=== PATIENT | male | born 1940 | race Caucasian/White ===

== ENCOUNTER 2016-08-09 13:23 | Outpatient (RCR) | payer OTHER, MEDICARE ==
[2016-08-09 14:01] LABS: BASOPHILS % (AUTO) 0 % (0-10); EOSINOPHILS # (AUTO) 0.3 10^3/uL (0.0-0.3); EOSINOPHILS % (AUTO) 5 % (0-10); LYMPHOCYTES # (AUTO) 1.5 X 10^3 (1.0-4.0); LYMPHOCYTES % (AUTO) 22 % (12-44); MEAN CORPUSCULAR HEMOGLOBIN 30 PG (25-34); MEAN CORPUSCULAR HGB CONC 34 G/DL (32-36); MEAN CORPUSCULAR VOLUME 90 FL (80-99); MEAN PLATELET VOLUME 10.3 FL (7.4-10.4); MONOCYTES # (AUTO) 0.5 X 10^3 (0.0-1.0); MONOCYTES % (AUTO) 7 % (0-12); NEUTROPHILS # (AUTO) 4.6 X 10^3 (1.8-7.8); NEUTROPHILS % (AUTO) 66 % (42-75); PLATELET COUNT 196 10^3/uL (130-400); RED BLOOD COUNT 4.58 10^6/uL (4.35-5.85); RED CELL DISTRIBUTION WIDTH 13.3 % (10.0-14.5)
[2016-08-09 14:43] LABS: ALANINE AMINOTRANSFERASE 31 U/L (0-55); ALBUMIN 4.1 G/DL (3.2-4.5); ANION GAP 9 MMOL/L (5-14); ASPARTATE AMINO TRANSFERASE 28 U/L (5-34); BILIRUBIN,TOTAL 0.4 MG/DL (0.1-1.0); BLOOD UREA NITROGEN 22 MG/DL (7-18); BUN/CREATININE RATIO 20; CALCIUM 9.1 MG/DL (8.5-10.1); CARBON DIOXIDE 21 MMOL/L (21-32); CHLORIDE 114 MMOL/L (98-107); CREATININE SERUM 1.09 MG/DL (0.60-1.30); GFR ESTIMATED > 60; GLUCOSE 95 MG/DL (70-105); POTASSIUM 4.6 MMOL/L (3.6-5.0); SODIUM 144 MMOL/L (135-145); TOTAL PROTEIN 6.9 G/DL (6.4-8.2)
== END 2016-11-07 | disposition home or self-care (01) ==
LOC: ONC 13:23
PROVIDERS: ATTEND Internal Medicine Hematology & Oncology
DX: Z86.2 Personal history of diseases of the blood and blood-forming organs and certain disorders involving the immune mechanism (principal); M48.06 Spinal stenosis, lumbar region; I82.531 Chronic embolism and thrombosis of right popliteal vein; C61 Malignant neoplasm of prostate; Z79.891 Long term (current) use of opiate analgesic
CPT/HCPCS: 36415; 80053; 84153; 85025; 99214

== ENCOUNTER → 2016-08-09 | Outpatient (CLI) | payer MEDICARE, OTHER ==
[~2016-08-09] MED LIST: ACHYD1T PO; ASPI-892; FNST5T PO; HC2.5C30 TP; HYOS0.1216 PO; LORA10TA2 PO; LRT10T; MECL-124; MECL-124 PO; MIRT30TA19; MORP15TA30; MULT-963 PO; OMEP20CA6 PO; PHEN200T27 PO; SERT100T8 PO; SMV20T PO; SULF1TAB38 PO; TAMS0.4C2 PO; TR1O15 TOP; TRM50T PO; WRF5T PO; [UNRECOGNIZED DRUG - CODE] PO
--- NOTE | 2016-08-09 15:50 | Diagnostic Imaging Report ---
Left lower extremity arterial vascular ultrasound. INDICATION: Claudication, pain. FINDINGS: There is mild multifocal plaque seen in the grayscale images in the femoropopliteal segments. Color Doppler demonstrates patency of the vessels from the common femoral to the posterior tibial and dorsalis pedis arteries bilaterally. There are triphasic waveforms seen throughout. The peak systolic velocities are in the range of 66 to 129 cm/sec from the proximal to distal with no evidence of significant underlying stenosis. IMPRESSION: Mild atherosclerotic plaque with no ultrasound evidence of significant arterial stenosis. Dictated by: Dictated on workstation # [id number]
== END ==
LOC: RAD 12:12
PROVIDERS: ATTEND Family Medicine
DX: I73.9 Peripheral vascular disease, unspecified (principal); L97.929 Non-pressure chronic ulcer of unspecified part of left lower leg with unspecified severity; M79.604 Pain in right leg; R22.42 Localized swelling, mass and lump, left lower limb
CPT/HCPCS: 93926

== ENCOUNTER 2016-08-28 14:28 | Outpatient (RCR) | payer MEDICARE, OTHER | END 2016-08-28 16:00 | disposition home or self-care (01) | LOC: WOUNDCARE 14:28 | PROVIDERS: ATTEND Surgery | DX: L97.221 Non-pressure chronic ulcer of left calf limited to breakdown of skin (principal); I87.332 Chronic venous hypertension (idiopathic) with ulcer and inflammation of left lower extremity; I70.242 Atherosclerosis of native arteries of left leg with ulceration of calf; I89.0 Lymphedema, not elsewhere classified | CPT/HCPCS: 99213; 99214 ==

== ENCOUNTER → 2017-11-15 | Outpatient (CLI) | payer MEDICARE ==
--- NOTE | 2017-11-15 18:08 | Diagnostic Imaging Report ---
PROCEDURE: US Bilateral lower extremity arterial. TECHNIQUE: Multiple real-time grayscale images are obtained through both lower extremity arterial systems with color Doppler imaging and color Doppler spectral analysis. INDICATION: Bilateral lower extremity claudication. FINDINGS: There is a triphasic and biphasic flow pattern throughout the arteries of both lower extremities. Mild atherosclerotic disease is seen with no occlusions or significant stenoses identified on either side. There is flow in the dorsalis pedis and posterior tibial arteries bilaterally. IMPRESSION: Mild disease. No significant abnormality is seen. Dictated by: Dictated on workstation # [id number]
== END ==
LOC: RAD 17:02
PROVIDERS: ATTEND Family Medicine
DX: I73.9 Peripheral vascular disease, unspecified (principal)
CPT/HCPCS: 93925

== ENCOUNTER 2017-11-30 11:25 | Day surgery (SDC) | payer MEDICARE, OTHER ==
[~2017-11-30] VITALS: Ht 190.5 cm; Wt 108.9 kg
[~2017-11-30 11:25] MED LIST changes: +ALFU10TA11 PO; +FINA5TAB6 PO; +FLUT15.88 NS; +FURO-124 PO; +LORA10TA7 PO; +MECL-106 PO; +NAPR-1070 PO; +NFIPRATRNS NS; +OMEP20TA7 PO; +PANT40TA2 PO; +RIVA20TA PO; +SERT50TA9 PO; +SIMV40TA4 PO; +TRAM50TA2 PO
[2017-11-30] MEDS ORDERED: NS IV 500 ML 500 ML ONE (11:37)
[2017-11-30] MEDS ORDERED: NS IV 500 ML 500 ML IV PRN (11:41)
[2017-11-30] MEDS ORDERED: NALOXONE 0.4 MG/ML 1 ML (NARCAN) VIAL IVP PRN (11:45)
[2017-11-30] MEDS ORDERED: LIDOCAINE JELLY 2% (XYLOCAINE) 5 ML TUBE MM PRN (11:45)
[2017-11-30] MEDS ORDERED: HURRICAINE EXT TUBE (BENZOCAINE) XX PRN (11:45)
[2017-11-30] MEDS ORDERED: FLUMAZENIL (ROMAZICON) 0.1 MG/ML 5 ML VIAL INJ PRN (11:45)
--- NOTE | 2017-11-30 11:46 | Conscious Sedation/ASA ---
Conscious Sedation Pre-Proced Time Reviewed: 11:45 ASA Class: 3 Airway Mallampati Classification: (agdaagux appropriate class) I. II. III, IV Lungs Heart ASA score ASA 1: a normal healthy patient ASA 2: a patient with a mild systemic disease (mid diabetes, controlled hypertension, obesity ASA 3: a patient with a severe systemic disease that limits activity (angina , COPD, prior Myocardial infarction) ASA 4: a patient with an incapacitating disease that is a constant threat to life (CHF, renal failure) ASA 5: a moribund patient not expected to survive 24 hrs. (ruptured aneurysm) ASA 6: a declared brain patient whose organs are being harvested. For emergent operations, add the letter E after the classification Grade 2 Sedation Plan: Analgesia, Amnesia, Plan communicated to team members, Discussed options with patient/fam, Discussed risks with patient/fam Note The patient is an appropriate candidate to undergo the planned procedure, sedation, and anesthesia. The patient immediately re-assessed prior to indication. YAMILETH NIEVES MD Nov 30, 2017 11:46 am
--- NOTE | 2017-11-30 11:46 | Progress Note-Pre Operative ---
Pre-Operative Progress Note H&P Reviewed The H&P was reviewed, patient examined and no changes noted. Date Seen by Provider: Nov 30, 2017 Time Seen by Provider: 11:45 Date H&P Reviewed: Nov 30, 2017 Time H&P Reviewed: 11:45 Pre-Operative Diagnosis: dysphagia, rectal bleed YAMILETH NEIVES MD Nov 30, 2017 11:46 am
[2017-11-30] MEDS ORDERED: ONDANSETRON 4 MG/2 ML (SDV) Z0FRAN IV PRN (12:00)
[2017-11-30] MEDS ORDERED: HYDROcodone/APAP 5 MG/325 MG (LORTAB) TAB PO PRN (12:00)
[2017-11-30] MEDS ORDERED: ACETAMINOPHEN 325 MG TABLET/CAPLET (TYLENOL) PO PRN (12:00)
[2017-11-30] MEDS ORDERED: morphine INJ 10 MG/ML 1ML (SYR OR VIAL) IV PRN (12:00)
[2017-11-30 12:08] VITALS: BP 120/83
[2017-11-30] MEDS ORDERED: LIDOCAINE JELLY 2% (XYLOCAINE) 5 ML TUBE ONE (12:49)
[2017-11-30] MEDS ORDERED: fentaNYL INJECTION 100 MCG/2 ML AMP ONE (12:49)
[2017-11-30] MEDS ORDERED: MIDAZOLAM 2 MG/2 ML (VERSED) VIAL ONE ×5 (12:49→13:37)
[2017-11-30] MEDS ORDERED: HURRICAINE EXT TUBE (BENZOCAINE) ONE (12:50)
[2017-11-30] MEDS: MIDAZOLAM 2 MG/2 ML (VERSED) VIAL IVP PRN ×5 (13:06→13:41)
[2017-11-30] MEDS: fentaNYL INJECTION 100 MCG/2 ML AMP IVP PRN ×2 (13:07→13:29)
[2017-11-30 13:50] VITALS: BP 120/83
--- NOTE | 2017-11-30 14:04 | Progress Note-Post Operative ---
Post-Operative Progess Note Surgeon (s)/Tennis Professional (s) Surgeon YAMILETH NIEVES MD Tennis Professional: none Pre-Operative Diagnosis dysphagia, rectal bleed Post-Operative Diagnosis reflux esophagitis(class B-C), mild schatzki ring, moderate HH(3cm), mild-moderate gastritis. chronic stage 2-3 ext and int hemorrhoids. Procedure & Operative Findings Date of Procedure 11/30/17 Procedure Performed/Findings EGD with bx and balloon and dilatation. Colonoscopy. Anesthesia Type CS Estimated Blood Loss Estimated blood loss (mL): minimal Specimens/Packing Specimens Removed GE jxn, antrum YAMILETH NIEVES MD Nov 30, 2017 2:03 pm
--- NOTE | 2017-11-30 14:05 | Discharge Inst-Surgical ---
D/C Lap Instructions-LIZBETH Follow Up Appt in 2 weeks Activity as tolerated High Fiber Diet 25g or more per day Avoid Alcohol, Caffeine, Spicy [place] and Acid foods. Drink 64 fluid oz or more of fluids per day. Symptoms to Report: Fever over 101 degree F, Nausea/Vomiting If any problems/questions: Contact your physician or go to Emergency Room YAMILETH NIEVES MD Nov 30, 2017 2:05 pm
[2017-11-30 14:15] VITALS: BP 114/74
[2017-11-30 14:45] VITALS: BP 115/70
--- NOTE | 2017-11-30 21:29 | OPERATIVE REPORT ---
DATE OF SERVICE: 11/30/2017 ATTENDING PRIMARY CARE PHYSICIAN: Dr. Lexi Maldonado. PREOPERATIVE DIAGNOSES: Dysphagia, maroon-colored stools. POSTOPERATIVE DIAGNOSES: Reflux esophagitis between class B and C, mild distal esophageal stricture, moderate size hiatal hernia approximately 3 cm in size, mild to moderate gastritis. No distal obstructions. Chronic between stage II and III external and internal hemorrhoids. Remainder of the rectum and colon were normal. PROCEDURE: EGD with biopsy and balloon dilatation. Colonoscopy. SURGEON: Dr. Nieves. ANESTHESIA: Conscious sedation. ESTIMATED BLOOD LOSS: Minimal. FINDINGS: EGD, reflux esophagitis between class B and C with a mild distal esophageal stricture, moderate size hiatal hernia approximately 3 cm in size, mild to moderate gastritis with no ulcers, polyps or any neoplasms identified as well as no active bleeding sources. Pylorus and duodenum appeared normal with no distal obstructions. Colonoscopy chronic between stage II and III external and internal hemorrhoids with mild irritation in edema. The most likely etiology of his bleeding being internal hemorrhoids. The remainder of the rectum and colon were normal. There were no polyps or any neoplasms identified. DISPOSITION: The patient tolerated the procedure well. The patient is a 77-year-old male who was referred over to us for maroon colored stools greater than past 2 weeks. He states that this is mixed with the stools as well as on the toilet tissue. 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 He also does have dysphagia and states that while eating food as well as medications, he will feel an epigastric fullness sensation as well as pressure. He also does report that he has had colon polyps in the past. The patient was brought to the endoscopy suite, laid in left lateral decubitus position with head slightly elevated. After adequate IV pain and sedating medications and conscious sedation anesthesia, the mouthpiece was applied. The endoscope was then placed in the mouth visualizing the pharynx and hypopharyngeal region. Vocal cords, epiglottis and vallecula identified and appeared to be normal. The endoscope was then gently intubated at the esophageal opening, esophagus insufflated. The endoscope was then advanced to the first, second and third portion of the esophagus to the level of the GE junction. A reflux esophagitis between class B and C identified. There was also a mild distal esophageal stricture and a Schatzki's ring. A biopsy was taken with forceps with visualization of good hemostasis. The endoscope was then easily advanced in the stomach and endoscope retroflexed, visualizing a moderate size hiatal hernia approximately 3 cm in size. This most likely is the etiology of his Schatzki's ring and dysphagia. There was a mild to moderate gastritis, no formal ulcers, polyps or any neoplasms identified as well as no bleeding sources. A biopsy was taken of the antrum for H. pylori with visualization of good hemostasis. The endoscope was then advanced to the pylorus into the first and second portion of the duodenum, which appeared normal with no distal obstructions. We then proceeded with the dilatation of the Schatzki's ring. A large CRE fixed guidewire balloon was placed in the stomach and pulled back to the level of the distal esophagus. The balloon was then insufflated to 3 atmospheres of pressure, 18 mm in diameter with no resistance. We then proceeded to 4.5 atmospheres of pressure or 19 mm with no resistance. We then proceeded to 20 mm or 6 atmospheres of pressure with very mild resistance and left this in place for 60 seconds. The balloon was desufflated and removed. There were no mucosal tears identified as well as no bleeding. The endoscope was then slowly withdrawn while taking a second look and suctioning residual air with no additional findings. The patient tolerated the procedure well. We will recommend diet and lifestyle accommodation including small and more frequent meals, avoidance of eating at night as well as head elevation while lying supine. He also needs to avoid caffeinated beverages, spicy, greasy and acidic foods. He may also restart his Protonix. Under the same conscious sedation anesthesia, we then proceeded with the colonoscopy portion of the procedure. A digital rectal examination was performed which revealed chronic between stage II and III external and internal hemorrhoids with some irritation of the internal hemorrhoidal cushions. We feel this is most likely due to the preparation, however, because of the size of the hemorrhoids as the most likely etiology of his bleeding along with taking anticoagulation. Normal sphincter tone was felt and there were no palpable masses. Prostate gland was palpable and appeared normal. The endoscope was then intubated to the anus and rectum gently insufflated. The endoscope was then advanced to the valves of [place] of the rectum with no polyps or any neoplasms identified. We then proceeded to the sigmoid colon where no diverticulosis identified. The endoscope was then advanced to the remainder of the descending, transverse and ascending colon to the cecum. These segments were normal. There were no polyps or any neoplasms identified as well as no active bleeding source is identified. The endoscope was then slowly withdrawn while taking a second look and suctioning of residual air with no additional findings. The patient tolerated the procedure well. We will recommend the necessary lifestyle and diet accommodation including a high fiber diet with at least 30 grams of fiber per day as well as at least 64 fluid ounces of water to promote soft stools on a daily basis. He does have between stage II and III external and internal hemorrhoids and the most likely etiology of his bleeding and if he continues to have problems with this, we will recommend that he proceed with a formal hemorrhoidectomy to stop the bleeding and allow for continued medical management with anticoagulation. Job ID: [id number] DocumentID: [id number] Dictated Date: 11/30/2017 14:04:11 Bottom Stainer Date: 11/30/2017 21:29:04 Dictated By: YAMILETH NIEVES MD
== END 2017-11-30 14:50 | disposition home or self-care (01) ==
LOC: ENDO 11:25
PROVIDERS: ATTEND Surgery
DX: K92.1 Melena (principal); K64.1 Second degree hemorrhoids; K21.0 Gastro-esophageal reflux disease with esophagitis; K22.2 Esophageal obstruction; K44.9 Diaphragmatic hernia without obstruction or gangrene; K29.70 Gastritis, unspecified, without bleeding; J44.9 Chronic obstructive pulmonary disease, unspecified; E78.00 Pure hypercholesterolemia, unspecified; N40.0 Benign prostatic hyperplasia without lower urinary tract symptoms; R60.0 Localized edema; Z86.718 Personal history of other venous thrombosis and embolism; Z79.01 Long term (current) use of anticoagulants; Z79.899 Other long term (current) drug therapy; Z87.891 Personal history of nicotine dependence
CPT/HCPCS: 88305

== ENCOUNTER → 2020-02-05 | Outpatient (CLI) | payer MEDICARE ==
[~2020-02-05] MED LIST changes: -ALFU10TA11 PO; +ALFU10TA12 PO; +FLUT15.845 NS; -FLUT15.88 NS; -MECL-106 PO; +MECL-149 PO; -RIVA20TA PO; +RIVA20TA2 PO; +SIMV40TA25 PO; -SIMV40TA4 PO; -TRAM50TA2 PO
== END ==
LOC: WOUNDCARE 12:37
PROVIDERS: ATTEND Surgery
DX: I87.332 Chronic venous hypertension (idiopathic) with ulcer and inflammation of left lower extremity (principal); L97.322 Non-pressure chronic ulcer of left ankle with fat layer exposed; G60.8 Other hereditary and idiopathic neuropathies
CPT/HCPCS: 99212

== ENCOUNTER → 2020-02-18 | Outpatient (CLI) | payer MEDICARE | LOC: WOUNDCARE 14:04 | PROVIDERS: ATTEND Surgery | DX: I87.332 Chronic venous hypertension (idiopathic) with ulcer and inflammation of left lower extremity (principal); L97.322 Non-pressure chronic ulcer of left ankle with fat layer exposed; G60.8 Other hereditary and idiopathic neuropathies; J44.9 Chronic obstructive pulmonary disease, unspecified; G62.9 Polyneuropathy, unspecified; Z92.3 Personal history of irradiation; K21.9 Gastro-esophageal reflux disease without esophagitis; M19.90 Unspecified osteoarthritis, unspecified site; F32.9 Major depressive disorder, single episode, unspecified; Z87.891 Personal history of nicotine dependence; Z86.718 Personal history of other venous thrombosis and embolism; Z85.46 Personal history of malignant neoplasm of prostate | CPT/HCPCS: 99212 ==